=== PATIENT | male | born 1980 | race Caucasian/White ===

== ENCOUNTER 2017-06-22 13:01 | Emergency (ER) | payer SELFPAY ==
[2017-06-22] MEDS ORDERED: Lidocaine 1%* 5 ML VIAL INJ ONE (14:13)
[2017-06-22] MEDS ORDERED: HYDROcodone/ACETAMIN 5-325 MG* 1 TAB PO ONE (14:14)
[2017-06-22] MEDS ORDERED: Clindamycin CAP* 150 MG PO ONE (14:14)
--- NOTE | 2017-06-22 15:39 | ED ---
Skin Complaint - HPI Summary HPI Summary: Patient is a 37-year-old male who presents emergency Department with complaints of abscess to right axilla times one to 2 weeks. Patient states his a history of ingrown hairs to as well as some believes he picked at a ingrown hair and it progressively got more infected. He attempted started at home with no success. Patient denies fever, chills, nausea or vomiting. Past medical history of asthma. Is not diabetic. Touching and moving her makes symptoms worse. Nothing makes symptoms better. - History of Current Complaint Chief Complaint: EDRashSkinAbscess Time Seen by Provider: 06/22/17 13:38 Stated Complaint: ABCESS Hx Obtained From: Patient Pain Intensity: 10 - Allergy/Home Medications Allergies/Adverse Reactions: Allergies Allergy/AdvReac Type Severity Reaction Status Date / Time bee venom protein (honey bee) Allergy Swelling Verified 06/22/17 13:40 Home Medications: Home Medications Albuterol 2.5MG/3ML (0.083%)* [Ventolin 2.5 MG/3 ML NEB.JOHNNIE*] 2.5 mg INH QAM [History Confirmed 06/22/17] Albuterol HFA INHALER* [Ventolin HFA Inhaler*] 1 - 2 puff INH Q4H PRN 06/22/17 [ History Confirmed 06/22/17] PMH/Surg Hx/FS Hx/Imm Hx Previously Healthy: Yes Respiratory History: Reports: Hx Chronic Obstructive Pulmonary Disease (COPD) - emphysema Infectious Disease History: No Infectious Disease History: Denies: History Other Infectious Disease, Traveled Outside the [place] in Last 30 Days - Family History Family History: NON CONTRIBUTORY - Social History Occupation: Employed Full-time Lives: Dormitory/Roommates Alcohol Use: None Substance Use Type: Reports: Marijuana Smoking Status (MU): Light Every Day Tobacco Smoker Type: Cigarettes Amount Used/How Often: 3/4 PPD Review of Systems Constitutional: Negative Negative: Fever, Chills Negative: Vomiting Positive: Other - Abscess to right axilla All Other Systems Reviewed And Are Negative: Yes Physical Exam Triage Information Reviewed: Yes Vital Signs On Initial Exam: Initial Vitals Temp Pulse Resp BP Pulse Ox 98.8 F 75 18 109/78 98 06/22/17 13:21 06/22/17 13:21 06/22/17 13:21 06/22/17 13:21 06/22/17 13:21 Vital Signs Reviewed: Yes Appearance: Positive: Well-Appearing - Patient sitting up in bed, right arm is elevated. Nontoxic. Skin: Positive: Other - Large, roughly the size of a golf ball area of erythema , fluctuance and pain noted to the right axilla. No drainage. Erythema extends mildly onto the anterior chest without induration. Arms are neurovascularly intact. Head/Face: Positive: Normal Head/Face Inspection Eyes: Positive: Normal, LISA Neck: Positive: Supple Neurological: Positive: Normal, CN Intact II-III Procedures - Incision and Drainage Site: right axilla Anesthesia: Local, Lidocaine Instrument(s): Scalpel Packing: Gauze Diagnostics - Vital Signs Vital Signs Temp Pulse Resp BP Pulse Ox 06/22/17 13:21 98.8 F 75 18 109/78 98 - Laboratory Lab Statement: Any lab studies that have been ordered have been reviewed, and results considered in the medical decision making process. Course/Dx - Course Course Of Treatment: Patient presenting for evaluation of an abscess cellulitis to right axilla. He is afebrile and well-appearing. I&D yielded a large amount of purulent drainage. Culture was obtained. Will start patient on clindamycin. Advised Tylenol or Motrin for pain as directed. To apply warm compresses. Patient does not currently have a family doctor. He was provided with the physician referral line. Advised him to return to the ER in 48 hours for wound check and packing change/removal. To return to the ER sooner for increased redness, swelling, fever, vomiting. Patient understands and agrees with plan. - Differential Diagnoses - Skin Complaint Differential Diagnoses: Abscess, Cellulitis - Diagnoses Provider Diagnoses: Abscess, Cellulitis Discharge - Sign-Out/Discharge Documenting (check all that apply): Discharge/Admit/Transfer - Discharge Plan Condition: Good Disposition: HOME Prescriptions: Clindamycin Cap(NF) [Clindamycin Cap 300 mg Cap(NF)] 300 mg PO Q6H 10 Days #40 cap Patient Education Materials: Abscess (ED), Abscess Follow-up (ED) Forms: *Work Release Referrals: [facility] [place] [place] [Outside] No Primary Care Phys,NOPCP [Primary Care Provider] - Additional Instructions: Return to the ER in 48 hours for wound check and packing removal/change Take antibiotic as directed Apply warm compresses Tylenol or Motrin for pain as directed Return to ER for increased redness, swelling, fever, or vomiting - Billing Disposition and Condition Condition: GOOD Disposition: HOME
[2017-06-22 15:50] VITALS: BP 125/91
--- NOTE | 2017-06-23 08:24 | ED ---
Progress - Progress Note Progress Note: Patient's wound culture results are positive for MRSA as well as staph aureus. Patient was started on clindamycin. Appropriate treatment. No change at this time. Course/Dx - Course Course Of Treatment: Patient presenting for evaluation of an abscess cellulitis to right axilla. He is afebrile and well-appearing. I&D yielded a large amount of purulent drainage. Culture was obtained. Will start patient on clindamycin. Advised Tylenol or Motrin for pain as directed. To apply warm compresses. Patient does not currently have a family doctor. He was provided with the physician referral line. Advised him to return to the ER in 48 hours for wound check and packing change/removal. To return to the ER sooner for increased redness, swelling, fever, vomiting. Patient understands and agrees with plan. - Diagnoses Provider Diagnoses: Abscess, Cellulitis Discharge - Sign-Out/Discharge Documenting (check all that apply): Discharge/Admit/Transfer - Discharge Plan Condition: Good Disposition: HOME Prescriptions: Clindamycin Cap(NF) [Clindamycin Cap 300 mg Cap(NF)] 300 mg PO Q6H 10 Days #40 cap Patient Education Materials: Abscess (ED), Abscess Follow-up (ED) Forms: *Work Release Referrals: [facility] PHYSICIAN REFERRAL [Outside] No Primary Care Phys,NOPCP [Primary Care Provider] - Additional Instructions: Return to the ER in 48 hours for wound check and packing removal/change Take antibiotic as directed Apply warm compresses Tylenol or Motrin for pain as directed Return to ER for increased redness, swelling, fever, or vomiting - Billing Disposition and Condition Condition: GOOD Disposition: HOME
== END 2017-06-22 15:50 | disposition home or self-care (01) ==
LOC: ED 13:01
DX: L02.818 Cutaneous abscess of other sites (principal); L03.111 Cellulitis of right axilla; F17.210 Nicotine dependence, cigarettes, uncomplicated
CPT/HCPCS: 10060; 87070; 87077; 87186; 87205; 87640; 87641; 96374; 99282; A9270-GY

== ENCOUNTER → 2017-06-24 15:06 | Emergency (ER) | payer SELFPAY ==
--- NOTE | 2017-06-24 17:31 | ED ---
Skin Complaint - HPI Summary HPI Summary: Patient here for recheck of right armpit abscess that was I&D earlier this week. He reports his wound has been much more comfortable since denies fevers and has been taking his antibiotics as directed. He reports his packing fell out last night but he replaced gauze over the wound. Pain is been well controlled without medication. No new symptoms to report. - History of Current Complaint Chief Complaint: EDRashSkinAbscess Time Seen by Provider: 06/24/17 16:36 Stated Complaint: F/U ON ABSCESS Hx Obtained From: Patient Pain Intensity: 0 - Allergy/Home Medications Allergies/Adverse Reactions: Allergies Allergy/AdvReac Type Severity Reaction Status Date / Time bee venom protein (honey bee) Allergy Swelling Verified 06/24/17 15:10 PMH/Surg Hx/FS Hx/Imm Hx Respiratory History: Reports: Hx Chronic Obstructive Pulmonary Disease (COPD) - emphysema Infectious Disease History: No Infectious Disease History: Denies: History Other Infectious Disease, Traveled Outside the [place] in Last 30 Days - Family History Family History: NON CONTRIBUTORY - Social History Alcohol Use: None Substance Use Type: Reports: Marijuana Smoking Status (MU): Light Every Day Tobacco Smoker Type: Cigarettes Amount Used/How Often: 3/4 PPD Physical Exam Vital Signs On Initial Exam: Initial Vitals Temp Pulse Resp BP Pulse Ox 99.0 F 97 20 114/86 97 06/24/17 15:10 06/24/17 15:10 06/24/17 15:10 06/24/17 15:10 06/24/17 15:10 Procedures - Procedure Summary Procedure Summary: Lt axillary wound flushed w/ saline and repacked - pt tolerated well Diagnostics - Vital Signs Vital Signs Temp Pulse Resp BP Pulse Ox 06/24/17 15:10 99.0 F 97 20 114/86 97 - Laboratory Lab Statement: Any lab studies that have been ordered have been reviewed, and results considered in the medical decision making process. Discharge - Sign-Out/Discharge Documenting (check all that apply): Discharge/Admit/Transfer - Discharge Plan Condition: Stable Disposition: HOME Patient Education Materials: Abscess (ED), Incision and Drainage (ED) Forms: *Work Release Referrals: No Primary Care Phys,NOPCP [Primary Care Provider] - Additional Instructions: Completes your antibiotics as directed. Keep dressing in place for the next 2 days. You'll need a dressing change and possibly repacked in 2 days. It is important that you follow up at an urgent care or return to the ED for this procedure. *If he developed fevers, chills, worsening of pain, return to the emergency department - Billing Disposition and Condition Condition: STABLE Disposition: HOME
[2017-06-24 17:53] VITALS: BP 119/85
--- NOTE | 2017-06-25 06:49 | PN ---
Progress Note - Progress Note Date of Service: 06/22/17 Note: Pt. seen in the ER 06/22/17 for right axilla abscess that was incised and drained. He was started on Clinda. Wound culture today is growing MRSA susceptible to Clindamycin. Will continue treatment plan.
== END | disposition home or self-care (01) ==
LOC: ED 15:06
DX: L02.411 Cutaneous abscess of right axilla (principal); F17.210 Nicotine dependence, cigarettes, uncomplicated
CPT/HCPCS: 99281

== ENCOUNTER 2017-07-10 09:22 | Emergency (ER) | payer SELFPAY ==
--- NOTE | 2017-07-10 10:18 | RAD ---
INDICATION: Shortness of breath. COMPARISON: There are no prior studies available for comparison. TECHNIQUE: Dual-energy PA and lateral views of the chest were obtained. FINDINGS: The heart is within normal limits in size. Mediastinal and hilar contours appear within normal limits. The lungs are hyperinflated and clear. No pleural effusion is seen. IMPRESSION: FINDINGS SUGGESTIVE OF COPD, NO EVIDENCE FOR ACUTE FINDING.
[2017-07-10] MEDS ORDERED: Albuterol/Ipratropium NEB.SOL* Albuterol 2.5 MG/Ipratropium 0.5 MG 3 ML INH ONE (10:42)
[2017-07-10 12:22] VITALS: BP 107/87
--- NOTE | 2017-07-10 13:19 | ED ---
Sondra Bowman Emily, scribed for Stephane Rios MD on 07/10/17 at 1025 . Shortness of Breath - HPI Summary HPI Summary: This patient is a 37 year old M BIBA to [facility] with a chief complaint of SOB that began 2 days ago. The patient rates the pain 0/10 in severity. Symptoms aggravated by nothing. Symptoms alleviated by nothing. Patient reports cough, wheezing, and chest pressure. Pt reports that he recently ran out of his medicines for COPD. - History of Current Complaint Chief Complaint: EDShortnessOfBreath Time Seen by Provider: 07/10/17 10:10 Hx Obtained From: Patient Onset/Duration: Sudden Onset, Lasting Days Timing: Constant Current Severity: Mild Aggrevating Factors: Nothing Alleviating Factors: Nothing Associated Signs & Symptoms: Cough (Nonproductive), Wheezing - Allergy/Home Medications Allergies/Adverse Reactions: Allergies Allergy/AdvReac Type Severity Reaction Status Date / Time bee venom protein (honey bee) Allergy Swelling Verified 07/10/17 09:40 PMH/Surg Hx/FS Hx/Imm Hx Previously Healthy: No Respiratory History: Reports: Hx Chronic Obstructive Pulmonary Disease (COPD) - emphysema Opthamlomology History: Denies: Hx Legally Blind EENT History: Denies: Hx Deafness Infectious Disease History: No Infectious Disease History: Denies: History Other Infectious Disease, Traveled Outside the [place] in Last 30 Days - Family History Known Family History: Positive: Cardiac Disease, Diabetes - Social History Occupation: Employed Full-time Lives: Alone Alcohol Use: None Substance Use Type: Reports: Marijuana Smoking Status (MU): Light Every Day Tobacco Smoker Type: Cigarettes Amount Used/How Often: 3/4 PPD Review of Systems Positive: Other - Positive chest pressure Positive: Shortness Of Breath, Cough, Other - Positive wheezing All Other Systems Reviewed And Are Negative: Yes Physical Exam - Summary Physical Exam Summary: Appearance: The patient is well-nourished in no acute distress and in no acute pain. Skin: The skin is warm and dry and skin color reflects adequate perfusion. HEENT: The head is normocephalic and atraumatic. The pupils are equal and reactive. The conjunctivae are clear and without drainage. Nares are patent and without drainage. Mouth reveals moist mucous membranes and the throat is without erythema and exudate. The external ears are intact. The ear canals are patent and without drainage. The tympanic membranes are intact. Neck: the neck is supple with full range of motion and non-tender. There are no carotid bruits. There is no neck vein distension. Respiratory: Chest is non-tender. Decreased breath sounds. Expiratory wheezes. Cardiovascular: Heart is regular rate and rhythm. There is no murmur or rub auscultated. There is no peripheral edema and pulses are symmetrical and equal. Abdomen: The abdomen is soft and non-tender. There are normal bowel sounds heard in all four quadrants and there is no organomegaly palpated. Musculoskeletal: There is no back tenderness noted. Extremities are non-tender with full range of motion. There is good capillary refill. There is no peripheral edema or calf tenderness elicited. Neurological: Patient is alert and oriented to person, place and time. The patient has symmetrical motor strength in all four extremities. Cranial nerves are grossly intact. Deep tendon reflexes are symmetrical and equal in all four extremities. Psychiatric: The patient has an appropriate affect and does not exhibit any anxiety or depression. Triage Information Reviewed: Yes Vital Signs On Initial Exam: Initial Vitals Temp Pulse Resp BP Pulse Ox 99.3 F 99 17 130/100 97 07/10/17 09:25 07/10/17 09:25 07/10/17 09:25 07/10/17 09:25 07/10/17 09:25 Vital Signs Reviewed: Yes Diagnostics - Vital Signs Vital Signs Temp Pulse Resp BP Pulse Ox 07/10/17 09:25 99.3 F 99 17 130/100 97 - Laboratory Lab Statement: Any lab studies that have been ordered have been reviewed, and results considered in the medical decision making process. - Radiology CXR Radiology Interpretation Completed By: Radiologist - CXR reveals, per radiologist, findings suggestive of COPD. No evidence for acute finding. ED physician has reviewed this radiology report. Course/Dx - Course Course Of Treatment: Mr. Rivas presented complaining of shortness of breath. He has a history of COPD and normally uses a nebulizer in the morning and a rescue inhaler as needed. He has been homeless and did not have a physician, his [facility] where they gave him a prescription for an inhaler using the [facility] and free samples of nebulizer albuterol. He is out of all that medication and had a difficult day yesterday and again today. A nebulizer here made him feel a lot better somebody ordered and chest x-ray which showed COPD. 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 - Diagnoses Provider Diagnoses: COPD (chronic obstructive pulmonary disease) Discharge - Sign-Out/Discharge Documenting (check all that apply): Discharge/Admit/Transfer - Discharge home - Discharge Plan Condition: Stable Disposition: HOME Prescriptions: Albuterol 2.5MG/3ML (0.083%)* [Ventolin 2.5 MG/3 ML NEB.JOHNNIE*] 2.5 mg INH Q6H # 100 neb.johnnie Albuterol HFA INHALER* [Ventolin HFA Inhaler*] 1 - 2 puff INH Q4H PRN #1 mdi PRN Reason: Sob/Wheezing Patient Education Materials: Albuterol (By breathing), COPD (Chronic Obstructive Pulmonary Disease) (ED) Referrals: [facility] [place]Outside] - 3 Days Additional Instructions: RETURN TO THE EMERGENCY DEPARTMENT FOR NEW OR WORSENING SYMPTOMS - Billing Disposition and Condition Condition: STABLE Disposition: HOME The documentation as recorded by the Sondra smalls Emily accurately reflects the service I personally performed and the decisions made by me, Stephane Rios MD.
== END 2017-07-10 12:20 | disposition home or self-care (01) ==
LOC: ED 09:22
DX: J44.9 Chronic obstructive pulmonary disease, unspecified (principal); F17.210 Nicotine dependence, cigarettes, uncomplicated
CPT/HCPCS: 71046; 99282; A9270-GY